=== PATIENT | male | born 1965 | race Caucasian/White ===

== ENCOUNTER 2018-01-19 09:24 | Day surgery (SDC) | payer BC ==
[~2018-01-19 09:24] MED LIST: Buffered Lidocaine 0.9% SYRIN* 5 ML/SYR SYRINGE INTRADERM ONE; Ketorolac INJ* 30 MG/ML 1 ML VIAL ONE; Lidocaine 2% PF * 5 ML VIAL ONE; Midazolam* 1 MG/ML 2 ML VIAL (2 MG) ONE; Ondansetron INJ* 2 MG/ML VIAL ONE; Propofol* 10 MG/ML 20 ML BTL IV PUSH ONE; fentaNYL* 50 MCG/ML 2 ML VIAL (100 MCG VIAL) ONE
[2018-01-19] MEDS ORDERED: ceFAZolin 2 GM PREMIX (*) 2 GM/50 ML BAG IVPB ONE (09:36)
[2018-01-19] MEDS ORDERED: Naloxone* 0.4 MG/ML 1 ML VIAL IV PRN (10:50)
[2018-01-19] MEDS ORDERED: oxyCODONE/Acetamin 5/325 MG* TAB PO PRN (10:50)
[2018-01-19] MEDS ORDERED: Levalbuterol 0.63MG/3ML NEB* UNIT OF USE INH PRN (10:50)
[2018-01-19] MEDS ORDERED: HYDROmorphone INJ* 1 MG/ML CARPUJECT SYRINGE IV PRN (10:50)
[2018-01-19] MEDS ORDERED: fentaNYL* 50 MCG/ML 2 ML VIAL (100 MCG VIAL) IV PRN (10:50)
[2018-01-19] MEDS ORDERED: diPHENhydraMINE IV* 50 MG/ML 1 ml VIAL (BENADRYL) IV PRN (10:50)
[2018-01-19] MEDS ORDERED: Acetaminophen TAB* 325 MG PO PRN (10:50)
[2018-01-19] MEDS ORDERED: Ondansetron INJ* 2 MG/ML VIAL IV PRN (10:50)
[2018-01-19] MEDS ORDERED: Bupivacaine 0.25% SDV* 30 ML ONE (12:05)
[2018-01-19] MEDS ORDERED: Midazolam* 1 MG/ML 2 ML VIAL (2 MG) ONE (12:22)
[2018-01-19] MEDS ORDERED: HYDROmorphone INJ* 1 MG/ML CARPUJECT SYRINGE ONE ×2 (12:25→14:27)
[2018-01-19] MEDS ORDERED: fentaNYL* 50 MCG/ML 2 ML VIAL (100 MCG VIAL) ONE (13:51)
[2018-01-19 16:30] VITALS: BP 118/71
--- NOTE | 2018-01-20 15:39 | RAD ---
INDICATION: Right thumb surgery COMPARISON: November 15, 2017 FINDINGS: 35 seconds of fluoroscopy were provided for the orthopedics department. Fluoroscopic spot imaging of the right hand were obtained for operative control. CPT II Codes: G9500 (fluoro time doc)
--- NOTE | 2018-01-24 10:11 | OP ---
DATE OF OPERATION: 01/19/18 - [facility] DATE OF : 61. SURGEON: Remy Zambrano MD. COPY CLERK: JONATHAN Harmon. An escrow assistant was needed for the entirety of the procedure to aid in positioning of the arm and retraction. ANESTHESIA: General. PRE-OP DIAGNOSES: 1. Right thumb failed basal joint arthroplasty with persistent pain. 2. 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 3. Right trigger thumb, improved with injection, but now is recurring. 4. Dupuytren's disease, right hand first webspace, with resultant first webspace contracture. POST-OP DIAGNOSES: 1. Right thumb failed basal joint arthroplasty with persistent pain. 2. 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 3. Right trigger thumb, improved with injection, but now is recurring. 4. Dupuytren's disease, right hand first webspace, with resultant first webspace contracture. OPERATIVE PROCEDURE: 1. Right thumb carpometacarpal arthroplasty. Please note that the metacarpal bone had been pinned into a now reduced position as prior surgery in the setting of extremely abducted and dorsal almost to the base of the second metatarsal and the trapezoid bone. It took an extensive more time to release, to reduce, and with suspension more difficult than a typical CMC joint arthroplasty. 2. Distally based flexor carpi radialis tendon transfer for thumb suspension and tendon interposition. 2. Right thumb metacarpophalangeal joint fusion with Acutrak screw. 3. Right trigger thumb release of A1 vic. 4. Excision of Dupuytren's disease of right hand involving the first webspace for release of first webspace contracture. 5. Closure with Z-plasty. INDICATIONS: Maclolm is 52. He had a right thumb CMC joint arthroplasty done back a couple of years ago. It has never been right ever since it was done. The thumb was set in a very odd position. The base of the metacarpal is palpable almost dorsal to the trapezoid bone. There was significant pain related to MCP joint DJD. He did have a trigger thumb pain. He felt substantially better with a steroid injection, but now it is recurring. Additionally, he has contracture of the first web space due to Dupuytren's disease. ESTIMATED BLOOD LOSS: 2 mL. COMPLICATIONS: None. FINDINGS: See above and below. DESCRIPTION OF PROCEDURE: Malcolm was seen in the preoperative holding area. The correct side, site and the procedure were identified. After anesthesia was induced, the arm was prepped and draped in the usual fashion. A time-out was performed. The arm was exsanguinated and the tourniquet was inflated. I then made a 1 cm transverse incision in the MCP joint flexion crease. Dissection was carried down. There was a little band of Dupuytren's tissue coming over the A1 vic; this was released. Full thickness flaps were raised. The digital nerves were protected. I then released the A1 vic longitudinally and extended the release proximally and distally with the tenotomy scissors. Once I had completed the trigger thumb release, I turned my attention to the Dupuytren's disease. I made a transverse incision over the first webspace. Dissection was carried and the skin was released from off the Dupuytren's cord. I then excised the Dupuytren's cord in its entirety. The digital nerves were protected during the excision. After I had the Dupuytren's disease excised, the contracture opened up. The skin was still tight. Hence, I went ahead and performed a Z-plasty to gain some length in the skin closure. I also closed the trigger thumb release wound at this time. I then turned my attention to the base of the joint. This was very degenerative. It was a very large comma type incision extending from the base of the thumb metacarpal down in a Lockett type fashion terminating over the FCR tendon sheath. The FCR tendon was readily palpable and was intact. I went ahead and brought my incision back dorsally just dorsal to the first dorsal compartment tendons. I used the interval between the first dorsal compartment tendons in the EPL. Full thickness flaps were raised subperiosteally. There was abundant scar tissue as was to be expected at the site of the prior arthroplasty, where the trapeziectomy had been performed. I went ahead and debrided all this out. I then used my Paragon blade to mobilize the base of the first metacarpal. This took an extensive amount of time much longer than normal. It was quite difficult, but ultimately I was able to get the thumb base mobilized down to the correct reduced position. The FCR tendon was located in the base of the wound after the debridement and it looked [place] and looked like it has never been used previously. Once I did have the thumb in the reduced position, I took sequentially larger drill bits and placed a bone tunnel from the proximal radial base of the dorsum of the first metacarpal exiting out the proximal ulnar portion of the articular surface of the base of the metacarpal. I then made a 1 cm transverse incision just proximal to the wrist flexion crease. The sheath over the FCR tendon was released. The tendon was split. A 26-gauge wire was placed in the tendon split, then came proximally , and made 2 more transverse incisions. The sheath was released along its entirety. The 26-gauge wire was then delivered into the skin. This split the tendon and released at the proximal musculo-tendinous junction. The tendon was debrided off this. The tendon was secured with 2-0 Ethibond suture. The tendon tail was delivered down into the base of the wound and the tendon was split all the way to the base of the second metacarpal. I then brought my tendon through the bony tunnel and then around the intact limb of the FCR tendon. Appropriate tension was set and the tendon transfer was secured with multiple 3-0 [id number] Ethibond sutures. The last two [id number] sutures sewed around the intact wound. The tendon transfer was holding the thumb very nicely in a reduced position. I had examined the scaphotrapezoid joint. There was no significant degenerative joint disease there. However, I rolled up the remainder of my tendon placed it into interposition between the base of the thumb metacarpal and the distal border of the scaphoid. I was then able to repair some capsular tissue over the tendon interposition to secure it down in the appropriate location and keep it from sliding out. Lastly, I made a longitudinal incision over the thumb metacarpophalangeal joint. Dissection was carried down. The EPL tendon was split. The MCP joint was opened after capsulotomy. The full-thickness flaps were raised radially and ulnarly. The joint was very degenerative. I placed a K-wire in the central position and used the Acumed small bone reamers to ream both the proximal phalanx and the metacarpal head to cancellous bone. The two bony ends were opposed and reduced. A provisional K-wire was placed ulnarly. I then placed the guidewire for the Acutrak screw, over drilled it and then placed the longest standard Acutrak screw available on the set. This provided excellent compression when checked with C-arm imaging. It was in just a few degrees of angulation radially, but when completed thumb was seen in a very nice position resting on the DIP joint of the index finger. Ultimately, I thought it looked very nice, so where as before I tried to provisionally fix it in a more straight position and the thumb looked very ulnar deviated I placed it slightly radially deviated and it opposed very nicely on the index finger. Once I had the bone nicely opposed, I went ahead and irrigated it out. I closed the capsule to the extent possible with some 4-0 Ethibond suture. The split in the tendon was repaired with 4-0 Prolene suture. All the skin was closed with 4-0 nylon suture. The wound was infiltrated with 0.25% plain Marcaine, the wounds were dressed, and the thumb spica splint was placed out of the mid portion of the distal phalanx. The tourniquet was deflated. The hand pinked up immediately and then he was woken up and taken to recovery room in stable condition. [id number]/[facility] #: [id number] JIGNA
== END 2018-01-19 16:30 | disposition home or self-care (01) ==
LOC: OREAST 09:24
PROVIDERS: ATTEND Orthopaedic Surgery Hand Surgery
DX: M18.0 Bilateral primary osteoarthritis of first carpometacarpal joints (principal); M24.241 Disorder of ligament, right hand; M72.0 Palmar fascial fibromatosis [Dupuytren]; M65.311 Trigger thumb, right thumb; F17.210 Nicotine dependence, cigarettes, uncomplicated; Z68.29 Body mass index [BMI] 29.0-29.9, adult; M19.90 Unspecified osteoarthritis, unspecified site
CPT/HCPCS: 76000; 88304; C1713; C1769; C1776; J0690; J1170; J1885; J2250; J2405; J2704; J3010

== ENCOUNTER 2019-08-26 17:06 | Emergency (ER) | payer BC ==
[2019-08-26 18:11] VITALS: BP 143/77
--- NOTE | 2019-08-26 18:17 | UC ---
Laceration HPI - HPI Summary HPI Summary: Patient is 54 year old gentleman, who present today to the urgent care with left index laceration that happened at 5 PM today. Today 1700 pt was cutting kindling wood w/ small hatchet. Accidently cut LEFT index finger during this activity. +bleed. Applied pressure dressing at home. Last tetanus May 2018. - History Of Current Complaint Chief Complaint: UCLaceration Stated Complaint: LACERATION LEFT INDEX FINGER Time Seen by Provider: 08/26/19 18:09 Hx Obtained From: Patient Pain Intensity: 6 - Allergies/Home Medications Allergies/Adverse Reactions: Allergies Allergy/AdvReac Type Severity Reaction Status Date / Time Sulfa (Sulfonamide Allergy Severe rash, flu Verified 08/26/19 17:59 Antibiotics) like symptoms PMH/Surg Hx/FS Hx/Imm Hx - Additional Past Medical History Additional PMH: Past Medical History : Hepatitis as a child, resolved Past Surgical History: right thumb 2017 left knee replacement 08/2016 revision left knee 08/2017 left foot ligament replacement Family History : non contributory Social History : No alcohol,Daily smoker, no drug use. Previously Healthy: Yes - Surgical History Surgical History: Yes Surgery Procedure, Year, and Place: right thumb 2016. left knee replacement 2015. revision left knee 08/2017. left foot ligament replacement - Family History Known Family History: Positive: Non-Contributory - Social History Alcohol Use: None Substance Use Type: None Smoking Status (MU): Current Every Day Smoker Amount Used/How Often: 10 cigarettes a day, smoked for 40 years Review of Systems All Other Systems Reviewed And Are Negative: Yes Constitutional: Positive: Negative Skin: Positive: Other - Laceration of left index finger Eyes: Positive: Negative ENT: Positive: Negative Respiratory: Positive: Negative Cardiovascular: Positive: Negative Gastrointestinal: Positive: Negative Genitourinary: Positive: Negative Motor: Positive: Negative Neurovascular: Positive: Negative Musculoskeletal: Positive: Negative Neurological: Positive: Negative Psychological: Positive: Negative Is Patient Immunocompromised?: No Physical Exam - Summary Physical Exam Summary: Vital Signs Reviewed: Yes A+Ox3, no distress Eyes: Conjunctiva Clear ENT: Hearing grossly normal neck: supple Respiratory: Positive: No respiratory distress, No accessory muscle use Cardiovascular: skin color reflect adequate perfusion Musculoskeletal Exam: MAYER x 4 without difficulty Neurological: Positive: Alert, ambulatory without difficulty Psychological: Positive: Normal Response To Family Skin: Left index finger with a V-shaped laceration on the medial aspect of proximal phalanx measuring 5 cm. point of the V is proximal. Flap type of laceration. Examination after everting the flap does not demonstrate extension to the bone. Triage Information Reviewed: Yes Vital Signs: Initial Vital Signs Temp 98.3 F 08/26/19 18:00 Pulse 87 08/26/19 18:00 Resp 16 08/26/19 18:00 BP 143/77 08/26/19 18:00 Pulse Ox 98 08/26/19 18:00 Vital Signs Reviewed: Yes Images Hands: 1 - V-shaped flap type laceration Laceration Repair - Laceration Repair 1 Procedure Summary: V-shaped flap-type laceration repaired with good approximation of the skin with 16 5-0 nylon sutures under local anesthesia Laceration Size After Repair: Length (cm) - 5, Width (mm) - Flap type, Depth (mm ) - 3 Type Injection: Local Anesthesia Used: 1.0% Lido Cleansing Completed Via Routine Prep: Yes Irrigation With Pressure Irrigation Device: Yes Closure Material: Sutures Closure Method: Single Layer Suture Of: Skin Suture Type: Nylon - 16 sutures with 5-0 nylon Laceration Course/Dx - Course/Dx Course Of Treatment: The wound was irrigated with normal saline and no foreign body was identified. Upon examination there was no extension of the wound to the bone. Laceration was repaired with 16 5-0 nylon sutures with good approximation. He was given 1 dose of Keflex here and rest was prescribed to the pharmacy. He is a patient of Dr. Zambrano and we discussed that he can follow up with him in 1-2 days for recheck and can get the sutures out in 7-10 days. - Diagnosis Provider Diagnosis: Laceration of left index finger Discharge ED - Sign-Out/Discharge Documenting (check all that apply): Patient Departure All imaging exams completed and their final reports reviewed: No Studies - Discharge Plan Condition: Stable Disposition: HOME Prescriptions: Cephalexin CAP* [Keflex CAP*] 500 mg PO TID 7 Days #21 cap Patient Education Materials: Care For Your Stitches (ED), Laceration (ED) Referrals: Rom Schilling MD [Primary Care Provider] - Remy Zambrano MD [Medical Doctor] - 2 Days Additional Instructions: First dose of antibiotic is given today. I have prescribed rest of the medication to the pharmacy. Please follow up with Dr. Zambrano in a day or 2 for recheck. Monitor for any signs of infection. Sutures can be taken out in 10 days. You can return to the urgent care for suture removal. Patients blood pressure slightly high in Urgent care today , plan follow up with PCP for better control Return to Urgent care / ER if symptoms get worse. - Billing Disposition and Condition Condition: STABLE Disposition: Home
[2019-08-26] MEDS ORDERED: Lidocaine 1% MPF ** 5 ML VIAL INJ ONE (18:23)
[2019-08-26] MEDS ORDERED: Cephalexin CAP* 500 MG PO ONE (19:32)
== END 2019-08-26 19:45 | disposition home or self-care (01) ==
LOC: UCCORT 17:06
DX: S61.211A Laceration without foreign body of left index finger without damage to nail, initial encounter (principal); F17.210 Nicotine dependence, cigarettes, uncomplicated; Z88.2 Allergy status to sulfonamides; W26.8XXA Contact with other sharp object(s), not elsewhere classified, initial encounter; Y93.89 Activity, other specified; Y92.9 Unspecified place or not applicable
CPT/HCPCS: 12002; 99212; A9270-GY; G0463

== ENCOUNTER 2019-10-25 07:37 | Day surgery (SDC) | payer BC ==
[~2019-10-25 07:37] MED LIST changes: -Buffered Lidocaine 0.9% SYRIN* 5 ML/SYR SYRINGE INTRADERM ONE; +Buffered Lidocaine 1% SYRIN* 1 ML/SYRINGE INTRADERM ONE; +Famotidine IV* 10 MG/ML 2 ML (20 mg) IV ONE; -Ketorolac INJ* 30 MG/ML 1 ML VIAL ONE; +Lactated Ringers 1000 ML Bag* 1,000 ML IV SCH; +Lidocaine 1% w EPI 1:200,000* SDV 30 ML VIAL ONE; -Lidocaine 2% PF * 5 ML VIAL ONE; -Midazolam* 1 MG/ML 2 ML VIAL (2 MG) ONE; -Ondansetron INJ* 2 MG/ML VIAL ONE; -Propofol* 10 MG/ML 20 ML BTL IV PUSH ONE; +Sodium Bicarbonate 8.4% IV* 50 ML VIAL ONE; -fentaNYL* 50 MCG/ML 2 ML VIAL (100 MCG VIAL) ONE
[2019-10-25] MEDS ORDERED: ceFAZolin 2 GM PREMIX in ORs 2 GM/50 ML BAG ONE (07:41)
[2019-10-25] MEDS ORDERED: Famotidine IV* 10 MG/ML 2 ML (20 mg) ONE (07:42)
[2019-10-25] MEDS ORDERED: Midazolam* 1 MG/ML 5 ML VIAL (5 MG) ONE (08:33)
[2019-10-25] MEDS ORDERED: Bupivacaine 0.25% SDV* 30 ML ONE (08:47)
[2019-10-25] MEDS ORDERED: fentaNYL* 50 MCG/ML 2 ML VIAL (100 MCG VIAL) ONE ×2 (08:47→08:48)
[2019-10-25] MEDS ORDERED: Propofol* 10 MG/ML 20 ML BTL ONE ×2 (08:51→10:36)
[2019-10-25] MEDS ORDERED: Ondansetron INJ* 2 MG/ML VIAL ONE (08:51)
[2019-10-25] MEDS ORDERED: Ketorolac INJ* 30 MG/ML 1 ML VIAL ONE (08:51)
[2019-10-25] MEDS ORDERED: Dexamethasone IV* 4 MG/ML 1 ML (4 MG) ONE (08:51)
[2019-10-25] MEDS ORDERED: Lidocaine 2% PF * 5 ML VIAL ONE (08:51)
[2019-10-25] MEDS ORDERED: Naloxone* 0.4 MG/ML 1 ML VIAL IV PRN (09:26)
[2019-10-25] MEDS ORDERED: HYDROcodone/ACETAMIN 5-325 MG* 1 TAB PO PRN (09:26)
[2019-10-25] MEDS ORDERED: DiMENhydriNATE IV* 50 MG/ML VIAL IV PUSH PRN (09:26)
[2019-10-25] MEDS ORDERED: HYDROmorphone INJ* 0.5 MG/0.5 ML SYRINGE ONE (09:45)
[2019-10-25] MEDS ORDERED: HYDROcodone/ACETAMIN 5-325 MG* 1 TAB ONE (11:48)
[2019-10-25 12:36] VITALS: BP 113/65
--- NOTE | 2019-10-25 22:20 | OP ---
DATE OF OPERATION: 10/25/19 - [facility] DATE OF : 61 SURGEON: Remy Zambrano MD INTERACTIVE PRODUCER: JONATHAN Harmon. An hr administrative assistant was needed for the procedure to aid in positioning of the arm and retraction. ANESTHESIOLOGIST: Dr. Michelle. ANESTHESIA: General. PRE-OP DIAGNOSES: 1. Left thumb carpometacarpal degenerative joint disease, stage III. 2. Left thumb metacarpophalangeal joint arthritis secondary to chronic radial collateral ligament insufficiency. 3. Left index finger retained foreign body. POST-OP DIAGNOSES: 1. Left thumb carpometacarpal degenerative joint disease, stage III. 2. Left thumb metacarpophalangeal joint arthritis secondary to chronic radial collateral ligament insufficiency. 3. Left index finger retained foreign body. OPERATIVE PROCEDURES: 1. Left thumb carpometacarpal arthroplasty with trapeziectomy. 2. Distally based split flexor carpi radialis tendon transfer for thumb suspension and tendon interposition. 3. Left thumb metacarpophalangeal joint arthrodesis with autogenous distal radius bone graft. 4. Removal of foreign body, left index finger. INDICATIONS: Malcolm has the aforementioned arthritis, is causing quite a bit of pain. He understands the risks and benefits associated with surgery. He wished to proceed. The foreign body on left index finger is right in the area where he had had a traumatic wound and it was stitched up. He may have a retained suture under the skin. The one area is quite symptomatic and so I told him we excise that. ESTIMATED BLOOD LOSS: 2 mL. COMPLICATIONS: None. FINDINGS: See above and below. DESCRIPTION OF PROCEDURE: Mr. Rainey was seen in the preoperative holding area. The correct site, side and procedures were identified. We came back to the operating room. The arm was prepped and draped in the usual fashion and a time-out was performed. The arm was exsanguinated with the Esmarch and the tourniquet was inflated to 225 mmHg. I first made a 2- to 3-cm incision over the dorsoradial thumb base. Dissection was carried down through the subcutaneous tissue longitudinally to preserve the sensory nerves. The radial artery was mobilized and retracted out of the way. Subperiosteal and capsular flaps were raised to release the soft tissue out about the periphery of the trapezium. The trapezium was then excised in its entirety in piecemeal fashion preserving the FCR tendon in the base. Once I had a full trapeziectomy performed, I went ahead and examined the scaphotrapezoid joint, that looked fine. I then went ahead and made a bone tunnel from the dorsoradial thumb base, exiting out the volar ulnar articular surface near the insertion of the FCR tendon on the base of the second metacarpal. The wound was then irrigated out and attention was turned to the tendon transfer. I made a 1 cm transverse incision over the distal FCR tendon. Dissection was carried down and the sheath was released and made 2 additional incisions over the FCR tendon, each about 7 or 8 cm proximal to the left. The sheath was released along its entirety. The tendon was brought up out of the wound distally and split longitudinally with a #15 blade. A 26-gauge wire was passed into the tendon split. The wire was then pulled up into the most proximal wound under the skin via a Meredith clamp, releasing half the tendon at the musculotendinous junction. The free tail of the tendon was then shuttled down into the thumb base wound with two 26-gauge wires. The tendon split was taken all the way down to the base of the second metacarpal. The free tail of the tendon was taken out through the bone tunnel back around the intact limb and then maximum tension was set as the tendon transfer was secured with 3 figure-of -eight 3-0 Ethibond sutures, the first sewing all 3 limbs of the tendon transfer together, the last 2 sewing intact limb to intact limb. The remainder of the free tendon tail was rolled up as a ball and secured with a 3-0 Ethibond suture and docked as an interposition proximal to the base of the metacarpal. The wound was then irrigated out. The capsule was closed with 4-0 Vicryl suture. All the wounds were closed with 4-0 nylon suture. We then turned our attention to the fusion. I made a longitudinal incision over the dorsum of the MCP joint. Dissection was carried down, full-thickness flaps were raised off the extensor tendon. The tendon was split longitudinally between the EPB and the EPL and the tendons were taken down on to the dorsum of the finger. The capsule was opened and the collateral ligaments were released. I was unable to open up the joint. I used the Acumed MCP joint fusion reamers to prepare the end of the metacarpal and the proximal phalanx. Once I had nice opposing surfaces, I went ahead and placed the guidewire from my standard Acutrak screw. This was placed in the appropriate location and confirmed on fluoroscopy. Once I was pleased with this, I wanted to pack a little bone graft and so I went ahead and made a 1- to 2-cm incision over the dorsum of the distal radius just proximal to Terri's tubercle. Subperiosteal dissection exposed the dorsum of the radius. Small cortical window was made with the osteotomes. I harvested fair amount of cancellous distal radius bone graft. That was then directly packed into the MCP joint fusion site. I then compressed as I then drilled over my wire and then placed a 30 mm standard Acutrak screw, this generated excellent compression and stability. At this point, everything was looking good. There was excellent compression. Final fluoroscopic imaging showed good alignment and good compression across the fusion site. I irrigated out the bone graft harvest site and the dorsum of the wound. The bone graft harvest site skin was closed with 4-0 nylon suture. The capsule was closed over the MCP joint with 4-0 PDS. The extensor tendon was then repaired longitudinally with 4-0 PDS. The skin was closed with 4-0 nylon suture. Lastly, I ellipsed out the area where he had the likely foreign body on the radial aspect of the left index finger near the MCP joint. I dissected down and took all the skin plus all the scar tissue surrounded that until healthy tissue was on all sites. I then irrigated out that wound and closed the skin with 4-0 nylon suture. At this point, everything was looking good, wounds were dressed, thumb spica splint just near the end of the tip of the thumb was applied. Tourniquet was deflated. The thumb pinked up immediately as to the hand. He was taken to the recovery room in stable condition. [id number]/[facility] #: [id number] JIGNA
== END 2019-10-25 12:22 | disposition home or self-care (01) ==
LOC: OREAST 07:37
PROVIDERS: ATTEND Orthopaedic Surgery Hand Surgery
DX: M18.12 Unilateral primary osteoarthritis of first carpometacarpal joint, left hand (principal); M24.242 Disorder of ligament, left hand; M79.5 Residual foreign body in soft tissue; Z96.659 Presence of unspecified artificial knee joint; F17.210 Nicotine dependence, cigarettes, uncomplicated; M19.90 Unspecified osteoarthritis, unspecified site
CPT/HCPCS: 76000; 88304; 88311; C1713; C1769; J0690; J1100; J1170; J1885; J2001; J2250; J2405; J2704; J3010; J3490

== ENCOUNTER 2021-04-28 06:40 | Observation (INO) ==
[~2021-04-28 06:40] MED LIST changes: +Buffered Lidocaine 1% SYRIN 1 ml INTRADERM ONE; -Buffered Lidocaine 1% SYRIN* 1 ML/SYRINGE INTRADERM ONE; -Famotidine IV* 10 MG/ML 2 ML (20 mg) IV ONE; -Lactated Ringers 1000 ML Bag* 1,000 ML IV SCH; +Lactated Ringers 1000 ml BAG 1,000 ML IV SCH; -Lidocaine 1% w EPI 1:200,000* SDV 30 ML VIAL ONE; -Sodium Bicarbonate 8.4% IV* 50 ML VIAL ONE; +ceFAZolin 2 GM in NS PREMIX 2 GM/100 ML BAG IVPB ONE
[2021-04-28] MEDS ORDERED: Propofol 10 MG/ML 20 ML BTL ONE ×2 (06:52→09:34)
[2021-04-28] MEDS ORDERED: Ondansetron 4 mg VIAL 2 MG/ML 2 ml VIAL ONE (06:52)
[2021-04-28] MEDS ORDERED: Dexamethasone IV 4 MG/ML VIAL 1 ml VIAL ONE ×2 (06:52→07:37)
[2021-04-28] MEDS ORDERED: Sevoflurane BOTTLE ONE (06:52)
[2021-04-28] MEDS ORDERED: Lidocaine 2% PF 5 ML VIAL ONE (06:52)
[2021-04-28] MEDS ORDERED: Midazolam 5 mg/5 ml VIAL 1 mg/ml 5 ml VIAL (5 mg) ONE (07:29)
[2021-04-28] MEDS ORDERED: fentaNYL 100 mcg/2 ml 50 MCG/ML VIAL ONE (07:29)
[2021-04-28] MEDS ORDERED: ROPIVACAINE 5 MG/ML 30 ML BTL (0.5%) ONE (07:42)
[2021-04-28] MEDS ORDERED: Dexmedetomidine 200 mcg/2 ml 2 ml VIAL (200 mcg) ONE (07:59)
[2021-04-28] MEDS ORDERED: Ketamine HCL 50 mg/ml 10 ml VIAL (500 MG) ONE (08:16)
[2021-04-28] MEDS ORDERED: Acetaminophen IV 1 GM/100ML 100 ML IV ONE (08:47)
[2021-04-28] MEDS ORDERED: Naloxone 0.4 mg VIAL 0.4 mg/ml 1 ml VIAL IV PRN (09:09)
[2021-04-28] MEDS ORDERED: DiMENhydriNATE IV 50 mg/ml 1 ml VIAL IV PUSH PRN (09:09)
[2021-04-28] MEDS ORDERED: oxyCODONE/Acetamin 5/325 mg TAB PO PRN (09:09)
[2021-04-28] MEDS ORDERED: fentaNYL 100 mcg/2 ml 50 MCG/ML VIAL IV PRN (09:09)
[2021-04-28] MEDS ORDERED: Ondansetron 4 mg VIAL 2 MG/ML 2 ml VIAL IV PRN ×2 (09:09→09:19)
[2021-04-28] MEDS ORDERED: Morphine 2 MG/ML SYRINGE IV PRN (09:19)
[2021-04-28] MEDS ORDERED: Ondansetron ODT 4 mg TAB 4 MG TAB PO PRN (09:19)
[2021-04-28] MEDS ORDERED: Magnesium Hydroxide LIQ 30 ML UDC PO PRN (09:19)
[2021-04-28] MEDS ORDERED: diPHENhydraMINE IV 50 MG/ML 1 ml VIAL (BENADRYL) IV PRN (09:19)
[2021-04-28] MEDS ORDERED: diPHENhydraMINE 25 mg TAB PO PRN (09:19)
[2021-04-28] MEDS ORDERED: Lactulose 30 ml UDC PO PRN (09:19)
[2021-04-28] MEDS ORDERED: TETRAHYDROZOLINE 0.05% EYE DROPS 15 ML BTL (NF) BOTH EYES PRN (09:26)
[2021-04-28] MEDS ORDERED: oxyCODONE/Acetamin 5/325 mg TAB ONE (12:26)
[2021-04-28] MEDS: Lactated Ringers 1000 ml BAG 1,000 ML IV SCH (13:16)
[2021-04-28] MEDS: ceFAZolin 1 GM ADVAN 1 GM in NS 0.9% 50 ML 50 ML IVPB SCH (16:23)
[2021-04-28] MEDS ORDERED: Naphazoline/Pheniramine OPTH 5 ML BTL BOTH EYES PRN (17:57)
[2021-04-28] MEDS: Magnesium Hydroxide LIQ 30 ML UDC PO SCH (21:47)
[2021-04-29] MEDS: ceFAZolin 1 GM ADVAN 1 GM in NS 0.9% 50 ML 50 ML IVPB SCH ×2 (00:21→07:57)
[2021-04-29] MEDS: Lactated Ringers 1000 ml BAG 1,000 ML IV SCH (00:24)
[2021-04-29 06:01] LABS: Hematocrit 37 % (42-52); Hemoglobin 12.3 g/dL (14.0-18.0); Mean Platelet Volume 7.6 fL (7.4-10.4); Platelet Count 220 10^3/uL (150-450)
[2021-04-29 06:39] LABS: Calcium 8.6 mg/dL (8.6-10.3); EGFR African American 138.4 (>60); EGFR Non-African American 114.4 (>60); Potassium 4.1 mmol/L (3.5-5.0)
[2021-04-29] MEDS: Magnesium Hydroxide LIQ 30 ML UDC PO SCH (07:53)
[2021-04-29] MEDS ORDERED: Vitamin THERAPEUTIC TAB PO SCH (09:00)
[2021-04-29] MEDS ORDERED: Morphine ER 15 mg TAB ** extended release PO SCH (09:00)
[2021-04-29 11:09] VITALS: BP 137/90
== END 2021-04-29 13:56 | disposition home or self-care (01) ==
LOC: AA 06:40 → INTOOBSV 06:40 → SSU 13:00
PROVIDERS: ADMIT Orthopaedic Surgery Adult Reconstructive Orthopaedic Surgery; ATTEND Orthopaedic Surgery Adult Reconstructive Orthopaedic Surgery